=== PATIENT | female | born 1990 | race Hispanic/Latino ===

== ENCOUNTER 2017-03-10 07:16 | Observation (INO) | payer BC ==
[2017-03-10 07:28] VITALS: BMI 25.8
[2017-03-10] MEDS ORDERED: Sodium Chloride 0.9% 1,000 ML IV STA ×2 (07:52→09:57)
--- NOTE | 2017-03-10 07:53 | ED PDOC ---
HPI: Female Pain Time Seen by Provider: 03/10/17 07:20 Chief Complaint (Nursing): Female Genitourinary Chief Complaint (Provider): Vaginal bleeding History Per: Patient History/Exam Limitations: no limitations Onset/Duration Of Symptoms: Hrs Current Symptoms Are (Timing): Still Present Severity: Moderate Quality Of Discomfort: denies: "Pain" Associated Symptoms: denies: Nausea, Vomiting, Chest Pain, Urinary Symptoms Additional History Per: Patient Additional Complaint(s): The pt. is a 26yo female, presents to the ED for evaluation of heavy vaginal bleeding with clots since 3 hours [employer]. Pt reports she had sexual intercourse and after which she noted the bleeding. Pt denies any pain, trauma. Pt reports this is the first instance of such bleeding s/p intercourse. Pt reports she has just ended her menstrual cycle and states her period is regular. Pt denies any pain, nausea, vomiting, dizziness. Pt also denies use of control. She denies any other medical complaints. No chest pain or dyspnea. Abnormal Vaginal Bleeding: Yes Last Menstral Period: Pt reports recently ended Past Medical History Reviewed: Historical Data, Nursing Documentation, Vital Signs Vital Signs: Last Vital Signs Temp 98.0 F 03/10/17 07:29 Pulse 103 H 03/10/17 07:29 Resp 18 03/10/17 07:29 BP 103/64 03/10/17 07:29 Pulse Ox 100 03/10/17 07:29 - Medical History PMH: No Chronic Diseases - Surgical History Surgical History: No Surg Hx - Family History Family History: States: Unknown Family Hx - Social History Current smoker - smoking cessation education provided: No Alcohol: None Drugs: Denies - Home Medications Home Medications: Ambulatory Orders Medication Instructions Recorded No Known Home Med 03/10/17 - Allergies Allergies/Adverse Reactions: Allergies Allergy/AdvReac Type Severity Reaction Status Date / Time No Known Allergies Allergy Verified 03/10/17 07:33 Review of Systems ROS Statement: Except As Marked, All Systems Reviewed And Found Negative Cardiovascular: Negative for: Chest Pain Gastrointestinal: Negative for: Nausea, Vomiting, Diarrhea Genitourinary Female: Positive for: Vaginal Bleeding. Negative for: Pelvic Pain Neurological: Negative for: Dizziness Physical Exam - Reviewed Nursing Documentation Reviewed: Yes Vital Signs Reviewed: Yes - Physical Exam Appears: Positive for: Well, Non-toxic, No Acute Distress Head Exam: Positive for: ATRAUMATIC, NORMAL INSPECTION, NORMOCEPHALIC Skin: Positive for: Normal Color, Warm, DRY Eye Exam: Positive for: Normal appearance ENT: Positive for: Normal ENT Inspection Neck: Positive for: Normal, Supple Cardiovascular/Chest: Positive for: Regular Rate, Rhythm Respiratory: Positive for: Normal Breath Sounds. Negative for: Respiratory Distress Gastrointestinal/Abdominal: Positive for: Normal Exam, Soft. Negative for: Tenderness Pelvic Exam: Positive for: External Exam Normal (with no lacerations), Blood ( large clots and blood, unable to visualize cervix.) Back: Positive for: Normal Inspection. Negative for: L CVA Tenderness, R CVA Tenderness Extremity: Positive for: Normal ROM. Negative for: Deformity, Swelling Neurologic/Psych: Positive for: Alert, Oriented - Laboratory Results Result Diagrams: 03/10/17 08:11 03/10/17 08:11 Interpretation Of Abn Labs: no acute - ECG O2 Sat by Pulse Oximetry: 100 (RA) Pulse Ox Interpretation: Normal - Progress ED Course And Treament: 1011: Dr. Sinha at bedside. Will suture laceration in vagina. Will give dilaudid for pain. Versed 1mg for relaxation. Ativan unavailable. 1045: Dr. Sinha to take pt. to the OR for cervical laceration fix. Will admit to her service. Medical Decision Making Medical Decision Making: Time: 0735 Impression: Vaginal bleeding and clots Plan: * UDip * CMP * CBC * IV Fluids * Beta-HCG * Pelvic exam with SHUKRI Han as deposition reporter * US Transvaginal * OB Consult Scribe Attestation: Documented by Naye Small acting as a scribe for Suhas Dean MD. Provider Attestation: All medical record entries made by the Scribe were at my direction and personally dictated by me. I have reviewed the chart and agree that the record accurately reflects my personal performance of the history, physical exam, medical decision making, and the department course for this patient. I have also personally directed, reviewed, and agree with the discharge instructions and disposition. Disposition - Clinical Impression Clinical Impression: Cervical laceration - Patient ED Disposition Is Patient to be Admitted: Yes Counseled Patient/Family Regarding: Studies Performed, Diagnosis - Disposition Disposition Time: 10:46 Condition: FAIR - POA Present On Arrival: None
[2017-03-10 08:21] LABS: BASO % 0.4 % (0.0-2.0); EOS % 0.1 % (0.0-4.0); HEMATOCRIT 38.5 % (34.0-47.0); LYMPH # 1.3 K/uL (1.0-4.3); LYMPH % 12.9 % (20.0-40.0); MEAN CELL VOLUME 86.5 fl (81.0-99.0); MEAN CORPUSCULAR HEMOGLOBIN 29.3 pg (27.0-31.0); MEAN CORPUSCULAR HGB CONC 33.9 g/dL (33.0-37.0); MEAN PLATELET VOLUME 9.8 fl (7.2-11.7); MONO # 0.6 K/uL (0.0-0.8); MONO % 5.4 % (0.0-10.0); NEUT # 8.4 K/uL (1.8-7.0); NEUT % 81.2 % (50.0-75.0); NRBC % 0.2 % (0.0-0.0); RED CELL DISTRIBUTION WIDTH 12.7 % (11.5-14.5); WHITE BLOOD COUNT 10.4 K/uL (4.8-10.8)
[2017-03-10 08:34] LABS: ALB/GLOB RATIO 1.4 (1.0-2.1); ALKALINE PHOSPHATASE 57 U/L (38-126); ALT/SGPT 32 U/L (9-52); AST/SGOT 24 U/L (14-36); BILIRUBIN,TOTAL 0.5 mg/dl (0.2-1.3); BLOOD UREA NITROGEN 10 mg/dl (7-17); CALCIUM 9.4 mg/dL (8.4-10.2); CARBON DIOXIDE 23 mmol/L (22-30); CHLORIDE 107 mmol/L (98-107); GFR AFRICAN-AMERICAN > 60; GLUCOSE,RANDOM 101 mg/dL (65-105); POTASSIUM 3.9 MMOL/L (3.6-5.0); SODIUM 143 mmol/l (132-148); TOTAL PROTEIN 8.1 G/DL (6.3-8.2)
[2017-03-10 09:03] LABS: PARTIAL THROMBOPLASTIN TIME 28.3 Seconds (25.6-37.1)
[2017-03-10] MEDS ORDERED: Midazolam 2 MG/2 ML VIAL IV ONE (09:53)
[2017-03-10] MEDS ORDERED: Midazolam 2 MG/2 ML VIAL ONE ×2 (09:56→12:08)
[2017-03-10] MEDS ORDERED: Lidocaine 1% Inj (20ml) SC ONE (10:11)
--- NOTE | 2017-03-10 11:04 | CP.SDSHP ---
Same Day Surgery H & P - History Proposed Procedure: repair of vaginal laceration Pre-Op Diagnosis: vaginal laceration - Allergies Allergies: Allergies No Known Allergies Allergy (Verified 03/10/17 07:33) - Physical Exam Vital Signs: Vital Signs 03/10/17 10:46 O2 Sat by Pulse 100 Oximetry Neuro: WNL Heart: WNL Lungs: WNL GI: WNL - {Optional Preform as Required} Breast: WNL Abdomen: WNL COMPOSITION FLOOR SETTER: Other : WNL Ortho: WNL ENT: WNL - Impression Pt. Evaluated Today:Candidate for Anesthesia & Procedure: Yes - Date & Time Date: 03/10/17 Time: 11:03 Short Stay Discharge - Short Stay Discharge Admitting Diagnosis/Reason for Visit: CERVICAL LACERATION Additional Instructions (Diet, Activity): F/U in 1-2 wks
--- NOTE | 2017-03-10 11:10 | CP.PCM.CON ---
History of Present Illness - History of Present Illness History of Present Illness: Patient is a nullparous 26 yo presents with heavy vaginal bleeding after intercourse. Patient reports noticing bleeding afterwards that progressed, no pain, no instrumentation was used, no CP, no SOB, no N/v, no loss of counsciousness. U/S shows no irregular pathology. On exam patient is found to have the cervix evulsed from her vaginal mucosa, actively bleeding Review of Systems - Review of Systems Systems not reviewed;Unavailable: Acuity of Condition - Cardiovascular Cardiovascular: As Per HPI - Respiratory Respiratory: As Per HPI - Gastrointestinal Gastrointestinal: As Per HPI - Genitourinary Genitourinary: As Per HPI - Reproductive: Female Reproductive:Female: As Per HPI - Menstruation Menstruation: As Per HPI Past Patient History - Past Medical History & Family History Past Medical History?: No - Past Social History Alcohol: None Drugs: Denies - PSYCHIATRIC Hx Substance Use: No - SURGICAL HISTORY Hx Surgeries: No - ANESTHESIA Hx Anesthesia: No Meds Allergies/Adverse Reactions: Allergies Allergy/AdvReac Type Severity Reaction Status Date / Time No Known Allergies Allergy Verified 03/10/17 07:33 Physical Exam - Constitutional Appears: Well - Head Exam Head Exam: ATRAUMATIC - Respiratory Exam Respiratory Exam: NORMAL BREATHING PATTERN - Cardiovascular Exam Cardiovascular Exam: REGULAR RHYTHM - GI/Abdominal Exam GI & Abdominal Exam: Normal Bowel Sounds - Exam Additional comments: heavy vaginal bleeding, evulsion of cervix from posterior vaginal mucosa. no masses, no other lacerations - Extremities Exam Extremities exam: Positive for: normal inspection Results - Vital Signs Recent Vital Signs: Last Vital Signs Temp 98.2 F 03/10/17 10:00 Pulse 102 H 03/10/17 10:30 Resp 16 03/10/17 10:30 BP 116/70 03/10/17 10:30 Pulse Ox 100 03/10/17 10:46 - Labs Result Diagrams: 03/10/17 08:11 03/10/17 08:11 Assessment & Plan - Assessment and Plan (Free Text) Assessment: A/P 1. Patient examined and vaginal laceration was attempted with IV pain medication. Unable to get adequate exposure, laceration looks to be the base of cervix from the posterior vaginal wall 2. Patient's starting Hgb = 13, VSS. Will continue to watch after repair 3. Patient to proceed to OR for examination under anesthesia and repair - Date & Time Date: 03/10/17 Time: 11:10
--- NOTE | 2017-03-10 11:43 | US ---
HISTORY: Vaginal bleeding. LMP 02/28/2017 COMPARISON: None available. TECHNIQUE: Transvaginal only. Real -time technique with 2D, duplex and color Doppler FINDINGS: UTERUS: Measures 4 x 3.5 x 8 cm. Normal in size and appearance. No fibroid or other mass lesion seen. ENDOMETRIUM: Measures 9.3 mm in diameter. Heterogeneous endometrium consistent with ongoing bleeding. This is particularly evident in the lower aspect of the endometrium extending into the cervical canal. CERVIX: Blood identified in the cervical canal. Incidental finding: Nabothian cysts RIGHT OVARY: Measures 2.3 x 1.7 x 4 cm. No solid mass. Normal flow. Multiple subcentimeter follicles. LEFT OVARY: Measures 1.3 x 1.9 x 3.4 cm. No solid mass. Normal flow. Multiple subcentimeter follicles. FREE FLUID: No significant free fluid noted. OTHER FINDINGS: None. IMPRESSION: Thickened endometrium, particularly within the lower endometrial canal extending into the cervix is debris/hemorrhagic products. Unremarkable adnexa.
[2017-03-10] MEDS ORDERED: Propofol 10 mg/ml Inj (20 ML) ONE (12:08)
[2017-03-10] MEDS ORDERED: Lactated Ringer's 1,000 ML IV ONE (12:45)
[2017-03-10 12:46] LABS: RBC URINE 3604 /hpf (0-3); URINE BACTERIA OCC (<OCC); URINE BILIRUBIN NEGATIVE (NEGATIVE); URINE BLOOD MODERATE (NEGATIVE); URINE COLOR RED (YELLOW); URINE GLUCOSE (UA) 50 mg/dL (Normal); URINE KETONE NEGATIVE (NEGATIVE); URINE LEUKOCYTE ESTERASE NEG Leu/uL (Negative); URINE PROTEIN >=500 mg/dL (NEGATIVE); URINE UROBILINOGEN 0.2-1.0 mg/dL (0.2-1.0); WBC URINE 12 /hpf (0-5)
[2017-03-10] MEDS ORDERED: Lactated Ringer's 1,000 ML IV SCH ×2 (13:22→13:24)
[2017-03-10] MEDS ORDERED: Oxycodone/Acetaminophen 5/325 mg Tab PO PRN (13:24)
[2017-03-10 16:38] VITALS: BP 100/62; PULSE 85; RESP 20; TEMP 97.9; O2SAT 98
--- NOTE | 2017-03-10 20:24 | OP ---
PROCEDURE DATE: 03/10/2017 SURGEON: Dr. Sinha PREOPERATIVE DIAGNOSIS: Cervical laceration. PROCEDURE: Repair of cervical laceration. POSTOPERATIVE DIAGNOSIS: Cervical laceration. FINDINGS: A 3 cm wide cervical laceration at the base of the cervix at the juncture to the posterior vaginal wall. ESTIMATED BLOOD LOSS: 100 mL. URINE OUTPUT: 100 mL COMPLICATIONS: None. CONDITION: Stable. PATHOLOGY SPECIMEN: None. INDICATION: This is a 26-year-old no parous female who presented to the Emergency Room with profuse vaginal bleeding after intercourse. The patient's LMP was the previous week, is known to have regula r periods. EPT was negative and there were no other risk factors. On exam, it was noted that she barry d a posterior vaginal wall or cervical laceration that was in need of repair that was profusely bleed ing. Attempt was made to repair the laceration in the Emergency Room with local anesthesia and Dilau did and Versed. The patient was unable to be adequately comfortable enough for appropriate exposure. So we decided at this point that she needed examination under anesthesia in order to repair the lac eration adequately. The patient was counseled of risks and benefits including risk of bleeding, poss ible infection and risks of anesthesia. The patient then was taken to the OR. DESCRIPTION OF PROCEDURE: The patient taken to the OR. Anesthesia was given without difficulty. Th e patient was draped. The patient was placed in the ____ stirrups, prepped and draped in normal ster ile manner with Betadine. Examination under anesthesia revealed that there was about a 3 cm wide lac eration at the base of the cervix in conjunction with the posterior vaginal wall. We used a Bovie to cauterize some small bleeders and then I used a 0 Vicryl stitch on a UR needle and 3 stitches were p laced to adequately reapproximate. At end of the procedure, the patient was hemostatic and there wer e no other sources of bleeding. EBL was found to be about 100 total during the case. The patient mo st likely lost only about 500 mL in the Emergency Room. The patient's starting hemoglobin was about 13, otherwise was stable in the Emergency Room and postoperatively. The patient was cleaned and all instruments were removed from the vagina. Once it was determined the patient was hemostatic and the patient was cleaned and awoken from anesthesia without difficulty. The patient was given instruction s to follow up in the office in 1-2 weeks. Was given a prescription for Percocet 10 tabs as well as a prescription for Motrin 600. There were no other complications with the procedure. Lyndsay Sinha MD cc: [id number] TT: 03/10/2017 20:23:35 jn
== END 2017-03-10 16:38 | disposition home or self-care (01) ==
LOC: H.ER 07:16 → OBSVTOIN 10:44 → INTOOBSV 10:44 → H.ERHOLD 10:44 → H.MEDSURG1 14:05
PROVIDERS: ADMIT Obstetrics & Gynecology; ATTEND Obstetrics & Gynecology
DX: S37.63XA Laceration of uterus, initial encounter (principal); S31.41XA Laceration without foreign body of vagina and vulva, initial encounter; X58.XXXA Exposure to other specified factors, initial encounter; Y93.89 Activity, other specified; Y92.9 Unspecified place or not applicable; Y99.9 Unspecified external cause status
CPT/HCPCS: 57200; 57720; 76830; 80053; 81003; 81025; 84702; 85025; 85610; 85730; 86850; 86900; 99285; G0378; J1170; J2001; J2250; J2704; J3010; J7030; J7040; J7120